=== PATIENT | female | born 1935 | race Caucasian/White ===

== ENCOUNTER 2016-10-29 16:50 | Emergency (ER) | payer MEDICARE, BC ==
--- NOTE | 2016-10-29 17:21 | Emergency Department Record ---
History of Present Illness - General Chief Complaint: Abdominal Pain Stated Complaint: UPSET STOMACH,FATIGHUED ,NO APPETITE,CHILLS Time Seen by Provider: 10/29/16 17:02 Source: Patient, Family Mode of Arrival: Ambulatory Limitations: No limitations - History of Present Illness Initial Comments: pt c/o nausea, decreased appetite, generally not feeling well, constipation. she is just finishing a course of bactrim for a uti. she denies pain MD Complaint: Other Onset/Timin -: Days(s) Consistency: Constant Improves With: Nothing Worsens With: Nothing Associated Symptoms: Denies other symptoms - Related Data Patient : No Home Medications Medication Instructions Recorded Confirmed Last Taken Sulfamethoxazole/Trimethoprim 1 each PO DAILY 10/29/16 10/29/16 Unknown [Sulfamethoxazole-Tmp Ds Tablet] Previous Rx's Medication Instructions Recorded Docusate Sodium [Colace] 100 mg PO QHS #20 cap 10/29/16 Allergies Allergy/AdvReac Type Severity Reaction Status Date / Time No Known Drug Allergies Allergy Verified 05/12/14 13:23 Travel Screening - Travel/Exposure Within Last 30 Days Have you traveled within the last 30 days?: No Review of Systems Reviewed: No additional complaints except as noted below Constitutional: Reports: As per HPI. Denies: Chills, Fever, Malaise, Night sweats, Weakness, Weight change Eyes: Reports: As per HPI. Denies: Eye discharge, Eye pain, Photophobia, Vision change ENT: Reports: As per HPI. Denies: Congestion, Dental pain, Ear pain, Epistaxis , Hearing loss, Throat pain Respiratory: Reports: As per HPI. Denies: Cough, Dyspnea, Hemoptysis, Stridor, Wheezes Cardiovascular: Reports: As per HPI. Denies: Arrhythmia, Chest pain, Dyspnea on exertion, Edema, Murmurs, Orthopnea, Palpitations, Paroxysmal nocturnal dyspnea, Rheumatic Fever, Syncope Endocrine: Reports: As per HPI. Denies: Fatigue, Heat or cold intolerance, Polydipsia, Polyuria Gastrointestinal: Reports: As per HPI. Denies: Abdominal pain, Constipation, Diarrhea, Hematemesis, Hematochezia, Melena, Nausea, Vomiting Genitourinary: Reports: As per HPI. Denies: Abnormal menses, Discharge, Dyspareunia, Dysuria, Frequency, Hematuria, Incontinence, Retention, Urgency Musculoskeletal: Reports: As per HPI. Denies: Arthralgia, Back pain, Gout, Joint swelling, Myalgia, Neck pain Skin: Reports: As per HPI. Denies: Bruising, Change in color, Change in hair/ nails, Lesions, Pruritus, Rash Neurological: Reports: As per HPI. Denies: Abnormal gait, Confusion, Headache, Numbness, Paresthesias, Seizure, Tingling, Tremors, Vertigo, Weakness Psychiatric: Reports: As per HPI. Denies: Anxiety, Auditory hallucinations, Depression, Homicidal thoughts, Suicidal thoughts, Visual hallucinations Hematological/Lymphatic: Reports: As per HPI. Denies: Anemia, Blood Clots, Easy bleeding, Easy bruising, Swollen glands Past Medical History - SOCIAL HISTORY Smoking Status: Never smoker Alcohol Use: None Drug Use: None - RESPIRATORY Hx Respiratory Disorders: No - CARDIOVASCULAR Hx Cardio Disorders: Yes Hx Hypertension: Yes Hx Irregular Heartbeat: Yes (hx of psvt) Hx Palpitations: Yes - NEURO Hx Neuro Disorders: No - GI Hx GI Disorders: Yes Hx Reflux: Yes - Hx Genitourinary Disorders: No - ENDOCRINE Hx Diabetes: No Hx Thyroid Disease: No - MUSCULOSKELETAL Hx Musculoskeletal Disorders: Yes Hx Arthritis: Yes - PSYCH Hx Psych Problems: No - HEMATOLOGY/ONCOLOGY Hx Hematology/Oncology Disorders: No Family Medical History Any Significant Family History?: No Physical Exam - General General Appearance: Alert, Oriented x3, Cooperative, Mild distress - Head Head exam: Normal inspection - Eye Eye exam: Normal appearance, PERRL, EOMI Pupils: Normal accommodation - ENT ENT exam: Normal exam, Mucous membranes moist, Normal external ear exam, Normal orophraynx Ear exam: Normal external inspection. negative: External canal tenderness Nasal Exam: Normal inspection. negative: Discharge, Sinus tenderness Mouth exam: Normal external inspection, Tongue normal Teeth exam: Normal inspection. negative: Dental caries Throat exam: Normal inspection. negative: Tonsillar erythema, Tonsillar exudate - Neck Neck exam: Normal inspection, Full ROM. negative: Tenderness - Respiratory Respiratory exam: Normal lung sounds bilaterally. negative: Respiratory distress - Cardiovascular Cardiovascular Exam: Regular rate, Normal rhythm, Normal heart sounds - GI/Abdominal GI/Abdominal exam: Soft, Normal bowel sounds. negative: Tenderness - Rectal Rectal exam: Deferred - exam: Deferred - Extremities Extremities exam: Normal inspection, Full ROM, Normal capillary refill. negative: Tenderness - Back Back exam: Reports: Normal inspection, Full ROM. Denies: Muscle spasm, Rash noted, Tenderness - Neurological Neurological exam: Alert, Normal gait, Oriented X3, Reflexes normal - Psychiatric Psychiatric exam: Normal affect, Normal mood - Skin Skin exam: Dry, Intact, Normal color, Warm Course Vital Signs 10/29/16 16:54 Temperature 97.5 F L Pulse Rate 68 Respiratory 18 Rate Blood Pressure 122/66 Pulse Ox 95 - Reevaluation(s) Reevaluation #1: 10/29/16 18:58 pt feels better Medical Decision Making - Lab Data Result diagrams: 10/29/16 17:34 10/29/16 17:34 Disposition Disposition: Discharge Clinical Impression: Dehydration Constipation Qualifiers: Constipation type: unspecified constipation type Qualified Code(s): K59.00 - Constipation, unspecified Disposition: Home, Self-Care Condition: (1) Good Instructions: Constipation (ED), Dehydration (ED) Additional Instructions: follow up with family doctor. return sooner if worse. push fluids. Prescriptions: Docusate Sodium [Colace] 100 mg PO QHS #20 cap Forms: Patient Portal Access Quality - Quality Measures Quality Measures: N/A - Blood Pressure Screening Does Patient Have Any of the Following: No Blood Pressure Classification: Pre-Hypertensive BP Reading Systolic Measurement: 122 Diastolic Measurement: 66 Screening for High Blood Pressure: < Pre-Hypertensive BP, F/U Documented > [ [id number]] Pre-Hypertensive Follow-up Interventions: Follow-up with rescreen every year.
[2016-10-29 17:47] LABS: HEMATOCRIT 42.3 % (35.0-47.0); HEMOGLOBIN 14.3 gm/dl (11.6-16.0); MEAN CELL VOLUME 84.4 fl (81-97); MEAN CORPUSCULAR HEMOGLOBIN 28.5 pg (27-33); MEAN CORPUSCULAR HGB CONC 33.8 g/dl (32-36); MEAN PLATELET VOLUME 11.2 fl (7.4-10.4); PLATELET COUNT 212 K/uL (130-400); RED BLOOD COUNT 5.01 M/uL (3.80-5.40); RED CELL DISTRIBUTION WIDTH 13.5 % (11.5-14.5); WHITE BLOOD COUNT W/O DIFF 6.4 K/uL (4.2-12.2)
[2016-10-29 17:55] LABS: PLATELET ESTIMATE NORMAL (NORMAL)
[2016-10-29 18:03] LABS: ALB/GLOB RATIO 1.3 (1.1-1.8); ALBUMIN 4.2 g/dL (4.0-5.0); ALKALINE PHOSPHATASE 72 U/L (35-104); ALT/SGPT 15 U/L (<33); AST/SGOT 18 U/L (10.0-35.0); BLOOD UREA NITROGEN 25 mg/dL (8-23); CREATININE 1.1 mg/dL (0.5-0.9); EST GLOMERULAR FILTRATION RATE 50 mL/min; GLUCOSE,RANDOM 141 mg/dL (74-109); LIPASE 44 U/L (13-60); TOTAL PROTEIN 7.4 g/dL (6.6-8.7)
[2016-10-29 18:04] LABS: TROPONIN I < 0.30 ng/mL (0.00-0.300)
[2016-10-29 18:08] LABS: URINE APPEARANCE CLOUDY; URINE BILIRUBIN NEGATIVE (NEGATIVE); URINE BLOOD NEGATIVE (NEGATIVE); URINE COLOR YELLOW; URINE GLUCOSE (UA) NEGATIVE (NEGATIVE); URINE KETONE NEGATIVE (NEGATIVE); URINE LEUKOCYTE ESTERASE NEGATIVE (NEGATIVE); URINE NITRITE NEGATIVE (NEGATIVE); URINE PROTEIN NEGATIVE (NEGATIVE); URINE UROBILINOGEN 0.2 E.U./dL (0.20 - 1.00)
[2016-10-29] MEDS ORDERED: 0.9 % SODIUM CHLORIDE 1,000 ML BAG IV ONE (18:36)
[2016-10-29] MEDS ORDERED: DOCUSATE SODIUM 100 MG CAPSULE PO ONE (18:54)
--- NOTE | 2016-10-31 11:54 | RADIOLOGY REPORT ---
DATE: 10/29/2016 at 5:44 p.m. EXAM: ACUTE ABDOMEN SERIES WITH A CHEST. HISTORY: Has not felt well for four days, tired, no appetite. Now constipated. TECHNIQUE: PA chest, supine, and upright abdomen. COMPARISON: Portable AP chest dated 05/12/2014. No prior abdomen series. FINDINGS: PA Chest: Heart size is normal. Mild calcification of the aorta again evident. No acute infiltrate seen. No pleural effusion or pneumothorax is evident. Abdomen Images: Surgical clips in the right upper quadrant of the abdomen, presumably from cholecystectomy. A prominent amount of stool throughout the colon suggesting constipation. A few scattered air fluid levels, particularly in the proximal colon, may be related to fecal impaction. No free air evident. Thoracolumbar dextroscoliosis and lower lumbar levoscoliosis with prominent degenerative change in the lumbar spine. IMPRESSION: 1. A PROMINENT AMOUNT OF STOOL IN THE COLON SUGGESTING CONSTIPATION. THERE MAY BE A COMPONENT OF FECAL IMPACTION. 2. NO FREE AIR EVIDENT. 3. SCOLIOSIS WITH PROMINENT DEGENERATIVE CHANGE IN THE LOWER LUMBAR SPINE. 4. THE LUNGS APPEAR CLEAR. JOB NUMBER: [id number] [facility]
== END 2016-10-29 20:08 | disposition home or self-care (01) ==
LOC: ER 16:50
DX: E86.0 Dehydration (principal); K59.00 Constipation, unspecified; R11.0 Nausea; I10 Essential (primary) hypertension
CPT/HCPCS: 74022; 80053; 81003; 83690; 84484; 85027; 93005; 93010; 99284; J7030

== ENCOUNTER 2018-01-05 20:18 | Emergency (ER) | payer MEDICARE, BC ==
--- NOTE | 2018-01-05 20:41 | Emergency Department Record ---
History of Present Illness - General Chief Complaint: Dizziness Stated Complaint: DIZZY ALL DAY Time Seen by Provider: 01/05/18 20:38 Source: Patient, Family Mode of Arrival: Wheelchair Limitations: No limitations - History of Present Illness Initial Comments: 82 yo female presents with dizziness throughout the day. She reports she actually has some episodes yesterday. The episodes come and go. They last several minutes and seem worse with moving. No other speech, vision, hearing changes. No weakness. She had transient difficultly with walking at 8pm that resolved. No history of stroke. She does have a history of SVT. No chest pain or shortness of breath. No other recent illness. MD Complaint: Dizziness Onset/Timin -: Days(s) Timing: Gradual onset Description: Difficulty walking, Lightheadedness, Off-balance History of Same: Yes History of Trauma: No Severity: Mild Improves With: Remaining still Worsens With: Movement Associated Symptoms: Ataxia - Shelbie Coma Scale Eye Response: (4) Open spontaneously Motor Response: (6) Obeys commands Verbal Response: (5) Oriented [place] Total: 15 - Related Data Allergies Allergy/AdvReac Type Severity Reaction Status Date / Time No Known Drug Allergies Allergy Verified 05/12/14 13:23 Travel Screening - Travel/Exposure Within Last 30 Days Have you traveled within the last 30 days?: No - Travel Symptoms Symptom Screening: None Review of Systems Constitutional: Denies: Chills, Fever, Malaise, Weakness Eyes: Denies: Eye discharge, Eye pain, Photophobia, Vision change ENT: Denies: Congestion, Throat pain Respiratory: Denies: Cough, Dyspnea, Hemoptysis, Stridor, Wheezes Cardiovascular: Denies: Chest pain, Palpitations, Syncope Endocrine: Denies: Fatigue Gastrointestinal: Denies: Abdominal pain, Diarrhea, Nausea, Vomiting Genitourinary: Denies: Dysuria, Urgency Musculoskeletal: Denies: Arthralgia, Back pain, Joint swelling, Myalgia Skin: Denies: Bruising, Change in color, Rash Neurological: Reports: Vertigo. Denies: Abnormal gait, Confusion, Headache, Numbness, Paresthesias, Seizure, Tingling, Tremors, Weakness Psychiatric: Denies: Anxiety Hematological/Lymphatic: Denies: Anemia, Blood Clots, Easy bleeding, Easy bruising, Swollen glands Past Medical History - SOCIAL HISTORY Smoking Status: Never smoker - RESPIRATORY Hx Respiratory Disorders: No - CARDIOVASCULAR Hx Cardio Disorders: Yes Hx Hypertension: Yes Hx Irregular Heartbeat: Yes (hx of psvt) Hx Palpitations: Yes - NEURO Hx Neuro Disorders: No - GI Hx GI Disorders: Yes Hx Reflux: Yes - Hx Genitourinary Disorders: No - ENDOCRINE Hx Diabetes: No Hx Thyroid Disease: No - MUSCULOSKELETAL Hx Musculoskeletal Disorders: Yes Hx Arthritis: Yes - PSYCH Hx Psych Problems: No - HEMATOLOGY/ONCOLOGY Hx Hematology/Oncology Disorders: No Family Medical History Any Significant Family History?: Yes Hx Cancer: Mother Hx Diabetes: Mother Hx Heart Disease: Mother, Brother/Sister, Grandparents Physical Exam - General General Appearance: Alert, Oriented x3, Cooperative, No acute distress Limitations: No limitations - Head Head exam: Atraumatic, Normal inspection - Eye Eye exam: Normal appearance, PERRL, EOMI, Nystagmus (With left gaze). negative : Conjunctival injection, Periorbital swelling, Scleral icterus - ENT ENT exam: Normal exam, Mucous membranes moist, Normal orophraynx Ear exam: Normal external inspection Nasal Exam: Normal inspection Mouth exam: Normal external inspection Teeth exam: Normal inspection Throat exam: Normal inspection - Neck Neck exam: Normal inspection, Full ROM. negative: Tenderness - Respiratory Respiratory exam: Normal lung sounds bilaterally. negative: Respiratory distress, Rhonchi, Stridor, Wheezes - Cardiovascular Cardiovascular Exam: Regular rate, Normal rhythm, Normal heart sounds Peripheral Pulses: 2+: Radial (R), Radial (L) - GI/Abdominal GI/Abdominal exam: Soft. negative: Tenderness - Rectal Rectal exam: Deferred - exam: Deferred - Extremities Extremities exam: Normal inspection. negative: Tenderness - Back Back exam: Denies: CVA tenderness (R), CVA tenderness (L), Rash noted - Neurological Neurological exam: Abnormal gait, Alert, CN II-XII intact, Oriented X3, Other ( Normal finger to nose, no pronator drift). negative: Altered, Motor sensory deficit - Psychiatric Psychiatric exam: Normal affect, Normal mood, Other - Skin Skin exam: Dry, Intact, Normal color, Warm Course Vital Signs 01/05/18 20:30 Temperature 97.8 F Pulse Rate 63 Respiratory 18 Rate Blood Pressure 181/74 Pulse Ox 98 - Reevaluation(s) Reevaluation #1: 01/05/18 20:39 EKG 2032 sinus rhythm rate 62 intervals normal axis left ST no acute changes 01/05/18 21:35 No acute changes on the labs The HCT was read as no acute process, small vessel ischemic disease. 01/05/18 21:54 The patient was ambulated. She required assistance with standing and then was unstable on her feet requiring support to prevent fall. She is unstable for DC home. This was discussed with her daughters. The patient will require admission. They and the patient prefer [facility] was contacted. 01/05/18 22:07 Her daughter now states she has had some intermittent hand numbness, none now Aspirin given in the ED 01/05/18 22:27 Dr Younger accepts the patient for transfer Medical Decision Making - Lab Data Result diagrams: 01/05/18 20:43 01/05/18 20:43 Disposition Disposition: Transfer Clinical Impression: Dizziness Disposition: Acute Care Hospital Transfer Transfer To: [facility] Reason For Transfer: Dizziness, difficulty walking Accepting Physician: Aren Time Discussed w/Accepting Physician: 22:28 Condition: (2) Stable Forms: Patient Portal Access Time of Disposition: 22:16 Quality - Quality Measures Quality Measures: N/A - Blood Pressure Screening Does Patient Have Any of the Following: Active Dx of HTN Blood Pressure Classification: Hypertensive Reading Systolic Measurement: 181 Diastolic Measurement: 74 Screening for High Blood Pressure: Patient Exclusion, Hx of HTN [G9744]
[2018-01-05 20:52] LABS: BASO % 1.7 % (0-6); GRAN % 38.9 % (47-80); HEMOGLOBIN 14.2 gm/dl (11.6-16.0); LYMPH % 46.2 % (16-45); MEAN CELL VOLUME 86.2 fl (81-97); MEAN CORPUSCULAR HEMOGLOBIN 28.5 pg (27-33); MEAN PLATELET VOLUME 10.9 fl (7.4-10.4); MONO % 10.2 % (0-9); PLATELET COUNT 231 K/uL (130-400); RED BLOOD COUNT 4.99 M/uL (3.80-5.40); RED CELL DISTRIBUTION WIDTH 13.4 % (11.5-14.5); WHITE BLOOD COUNT W/O DIFF 7.8 K/uL (4.2-12.2)
[2018-01-05] MEDS: MECLIZINE 25 MG TABLET PO ONE (20:55)
[2018-01-05 21:05] LABS: PARTIAL THROMBOPLASTIN TIME 28.1 SECONDS (24.5-39.1); PROTHROMBIN TIME (PATIENT) 10.2 SECONDS (9.5-12.1)
[2018-01-05 21:08] LABS: BLOOD UREA NITROGEN 16 mg/dL (8-23); CREATININE 0.7 mg/dL (0.5-0.9); EST GLOMERULAR FILTRATION RATE > 60 mL/min
[2018-01-05 21:09] LABS: TOTAL PROTEIN 7.3 g/dL (6.6-8.7)
[2018-01-05 21:11] LABS: GLUCOSE,RANDOM 104 mg/dL (74-109)
[2018-01-05 21:14] LABS: ALB/GLOB RATIO 1.4 (1.1-1.8); ALBUMIN 4.3 g/dL (4.0-5.0); ALKALINE PHOSPHATASE 80 U/L (35-104); ALT/SGPT 18 U/L (<33); AST/SGOT 21 U/L (10.0-35.0)
[2018-01-05] MEDS: ASPIRIN 81 MG CHEWABLE TABLET PO ONE (22:19)
--- NOTE | 2018-01-07 23:23 | CT SCAN REPORT ---
EXAM: CT SCAN HEAD WO CONTRAST HISTORY: MENTAL STATUS CHANGE. TECHNIQUE: Sequential axial images were obtained from the foramen magnum to the vertex without contrast administration. FINDINGS: The brain volume is normal. There is periventricular small vessel ischemic change. No large territorial infarct, hemorrhage, mass effect, or midline shift. The orbits, paranasal sinuses and mastoid air cells are normal. IMPRESSION: MILD PERIVENTRICULAR SMALL VESSEL ISCHEMIA. NO ACUTE INTRACRANIAL ABNORMALITY. JOB NUMBER: [id number] [facility]
== END 2018-01-05 23:10 | disposition short-term general hospital (02) ==
LOC: ER 20:18
DX: R42 Dizziness and giddiness (principal); R51 Headache; R26.2 Difficulty in walking, not elsewhere classified; I10 Essential (primary) hypertension
CPT/HCPCS: 70450; 80053; 85025; 85610; 85730; 93005; 93010; 99285